=== PATIENT | male | born 1945 | race Caucasian/White ===

== ENCOUNTER 2018-10-28 14:11 | Emergency (ER) | payer SELFPAY ==
[2018-10-28 14:29] VITALS: BP 158/101
[2018-10-28] MEDS ORDERED: Lactated Ringers 500 ML IV ONE (14:30)
[2018-10-28] MEDS ORDERED: Lactated Ringers 1,000 ML IV SCH (14:45)
--- NOTE | 2018-10-28 16:50 | EDM.PDOC ---
ED HPI GENERAL MEDICAL PROBLEM - General Chief Complaint: Neurological Problem Stated Complaint: [facility] Time Seen by Provider: 10/28/18 14:11 - History of Present Illness INITIAL COMMENTS - FREE TEXT/NARRATIVE: 72-year-old male brought in by EMS. He was found down. Patient was last known normal on Wednesday. The patient was found down by family members today worried soiled himself and urinated. It is uncertain how long he's been down. The patient moves all 4 extremities equally he doesn't have facial weakness. He denies any pain when he first presents here no chest pain chest pressure he does not understand why he was down or how long he was down. The family found him down today. History is significant for frequent heavy alcohol usage over the last several years. It is unknown if this is contributing to the situation. - Related Data Allergies Allergy/AdvReac Type Severity Reaction Status Date / Time No Known Allergies Allergy Verified 10/30/14 12:20 Home Meds: Home Meds . [No Known Home Meds] 10/30/14 [History] Past Medical History - Past Health History Medical/Surgical History: Denies Medical/Surgical History Social & Family History - Family History Family Medical History: Noncontributory - Tobacco Use Smoking Status *Q: Never Smoker - Caffeine Use Caffeine Use: Reports: Coffee - Recreational Drug Use Recreational Drug Use: No ED ROS GENERAL - Review of Systems Review Of Systems: See Below Constitutional: Reports: Fever. Denies: Chills HEENT: Reports: No Symptoms Respiratory: Reports: No Symptoms Cardiovascular: Reports: No Symptoms GI/Abdominal: Reports: No Symptoms : Reports: Other (Incontinence related to be in down) Musculoskeletal: Reports: Back Pain Skin: Reports: No Symptoms Neurological: Reports: Confusion, Other (After watching him for a while not convinced he's not having some mild hallucinations) Psychiatric: Reports: Hallucinations, Other (He did become agitated while trying to position him. He tolerated getting the maude-area clean the belly came to reposition them become a little agitated because of back pain) Immunologic: Reports: No Symptoms ED EXAM, NEURO - Physical Exam Exam: See Below Exam Limited By: Other (Vital signs stable he had a low-grade fever of 100.5) General Appearance: No Apparent Distress, Other (Initially denies any pain or problems) Eye Exam: Bilateral Eye: Normal Inspection Nose: Normal Inspection, Normal Mucosa, No Blood Throat/Mouth: Normal Oropharynx, No Airway Compromise, Other Head Exam: Atraumatic, Normocephalic Neck: Normal Inspection, Supple, Non-Tender, Full Range of Motion Respiratory/Chest: No Respiratory Distress, Lungs Clear, Normal Breath Sounds Cardiovascular: Regular Rate, Rhythm, No Edema, No Murmur GI/Abdominal: Normal Bowel Sounds, Soft, Non-Tender Neurological: Other (He is slow to respond but answers questions for the most part appropriately with observation he was trying to take the light out of the pulse oximetry unit) Psychiatric: Flat Affect Skin Exam: Warm, Dry, Intact Course - Vital Signs Last Recorded V/S: Last Vital Signs Temp 38.1 C 10/28/18 14:16 Pulse 96 10/28/18 14:16 Resp 28 H 10/28/18 14:16 BP 158/101 H 10/28/18 14:16 Pulse Ox 92 L 10/28/18 14:16 - Orders/Labs/Meds Orders: Active Orders 24 hr Category Date Time Status EKG Documentation Completion [RC] STAT Care 10/28/18 14:27 Active Chest 1V Frontal [CR] Stat Exams 10/28/18 14:26 Taken Head wo Cont [CT] Stat Exams 10/28/18 14:25 Taken Lumbar Spine wo Cont [CT] Stat Exams 10/28/18 16:37 Ordered Thoracic Spine wo Cont [CT] Stat Exams 10/28/18 16:37 Ordered ABG [BLOOD GAS ARTERIAL] [BG] Stat Lab 10/28/18 16:34 Ordered CKMB [CHEM] Stat Lab 10/28/18 14:40 Received CULTURE BLOOD [BC] Stat Lab 10/28/18 14:48 Received CULTURE BLOOD [BC] Stat Lab 10/28/18 15:35 Received MYOGLOBIN, URINE Stat Lab 10/28/18 16:22 Received Lactated Ringers [Ringers, Lactated] 1,000 ml Med 10/28/18 14:45 Active IV ASDIRECTED Blood Culture x2 Reflex Set [OM.PC] Stat Oth 10/28/18 14:29 Ordered Medication Orders Lactated Ringer's (Ringers, Lactated) 1,000 mls @ 125 mls/hr IV ASDIRECTED PHONG Labs: Laboratory Tests 10/28/18 10/28/18 10/28/18 Range/Units 14:40 14:40 14:40 WBC 9.36 H (4.23-9.07) K/mm3 RBC 4.60 L (4.63-6.08) M/mm3 Hgb 17.0 (13.7-17.5) gm/L Hct 48.8 (40.1-51.0) % MCV 106.1 H (79.0-92.2) fl MCH 37.0 H (25.7-32.2) pg MCHC 34.8 (32.2-35.5) g/dl RDW Std Deviation 54.3 H (35.1-43.9) fL Plt Count 120 L (163-337) K/mm3 MPV 9.2 L (9.4-12.3) fl Neutrophils % (Manual) 85 H (40-60) % Band Neutrophils % 2 (0-10) % Lymphocytes % (Manual) 8 L (20-40) % Atypical Lymphs % 0 % Monocytes % (Manual) 5 (2-10) % Eosinophils % (Manual) 0 L (0.8-7.0) % Basophils % (Manual) 0 L (0.2-1.2) Platelet Estimate Decreased Plt Morphology Comment See note Anisocytosis 1+ slight Macrocytosis 1+ slight RBC Morph Comment Not Reportable PT 11.6 (9.5-12.1) SECONDS INR 1.07 APTT 29 (24-31) SECONDS Sodium 139 (136-145) mEq/L Potassium 3.6 (3.5-5.1) mEq/L Chloride 98 (98-107) mEq/L Carbon Dioxide 24 (21-32) mEq/L Anion Gap 20.6 H (5-15) BUN 13 (7-18) mg/dL Creatinine 1.0 (0.7-1.3) mg/dL Est Cr Clr Drug Dosing TNP Estimated GFR (MDRD) > 60 (>60) mL/min BUN/Creatinine Ratio 13.0 L (14-18) Glucose 131 H (83-115) mg/dL Lactic Acid (0.4-2.0) mmol/L Calcium 9.0 (8.5-10.1) mg/dL Total Bilirubin 1.8 H (0.2-1.0) mg/dL AST 384 H (15-37) U/L ALT 63 (16-63) U/L Alkaline Phosphatase 70 (46-116) U/L Creatine Kinase 82120 H (39-308) U/L Troponin I 1.924 H* (0.00-0.056) ng/mL Total Protein 7.0 (6.4-8.2) g/dl Albumin 3.1 L (3.4-5.0) g/dl Globulin 3.9 gm/dL Albumin/Globulin Ratio 0.8 L (1-2) Urine Color (Yellow) Urine Appearance (Clear) Urine pH (5.0-8.0) Ur Specific [place] (1.005-1.030) Urine Protein (Negative) Urine Glucose (UA) (Negative) Urine Ketones (Negative) Urine Occult Blood (Negative) Urine Nitrite (Negative) Urine Bilirubin (Negative) Urine Urobilinogen (0.2-1.0) Ur Leukocyte Esterase (Negative) Urine RBC (0-5) /hpf Urine WBC (0-5) /hpf Ur Epithelial Cells (0-5) /hpf Urine Bacteria (FEW) /hpf Urine Mucus (FEW) /hpf Urine Opiates Screen (TWJWGN=569) Ur Buprenorphine Scrn (CUTOFF=10) Ur Oxycodone Screen (BXV2UB=562) Urine Methadone Screen (SOJ0TF=782) Ur Propoxyphene Screen (LEMKYB=826) Ur Barbiturates Screen (NZLVUQ=003) Ur Tricyclics Screen (QNBQRS=209) Ur Phencyclidine Scrn (CUTOFF=25) Ur Amphetamine Screen (ZOXVBX=971) U Methamphetamines Scrn (ZSFTYZ=432) U Benzodiazepines Scrn (GDKSRS=665) U Cocaine Metab Screen (QZCGHR=103) U Marijuana (THC) Screen (CUTOFF=50) Ethyl Alcohol (0.00) gm% 10/28/18 10/28/18 10/28/18 Range/Units 14:40 14:40 16:22 WBC (4.23-9.07) K/mm3 RBC (4.63-6.08) M/mm3 Hgb (13.7-17.5) gm/L Hct (40.1-51.0) % MCV (79.0-92.2) fl MCH (25.7-32.2) pg MCHC (32.2-35.5) g/dl RDW Std Deviation (35.1-43.9) fL Plt Count (163-337) K/mm3 MPV (9.4-12.3) fl Neutrophils % (Manual) (40-60) % Band Neutrophils % (0-10) % Lymphocytes % (Manual) (20-40) % Atypical Lymphs % % Monocytes % (Manual) (2-10) % Eosinophils % (Manual) (0.8-7.0) % Basophils % (Manual) (0.2-1.2) Platelet Estimate Plt Morphology Comment Anisocytosis Macrocytosis RBC Morph Comment PT (9.5-12.1) SECONDS INR APTT (24-31) SECONDS Sodium (136-145) mEq/L Potassium (3.5-5.1) mEq/L Chloride (98-107) mEq/L Carbon Dioxide (21-32) mEq/L Anion Gap (5-15) BUN (7-18) mg/dL Creatinine (0.7-1.3) mg/dL Est Cr Clr Drug Dosing Estimated GFR (MDRD) (>60) mL/min BUN/Creatinine Ratio (14-18) Glucose (83-115) mg/dL Lactic Acid 1.4 (0.4-2.0) mmol/L Calcium (8.5-10.1) mg/dL Total Bilirubin (0.2-1.0) mg/dL AST (15-37) U/L ALT (16-63) U/L Alkaline Phosphatase (46-116) U/L Creatine Kinase (39-308) U/L Troponin I (0.00-0.056) ng/mL Total Protein (6.4-8.2) g/dl Albumin (3.4-5.0) g/dl Globulin gm/dL Albumin/Globulin Ratio (1-2) Urine Color Yellow (Yellow) Urine Appearance Slt cloudy H (Clear) Urine pH 5.5 (5.0-8.0) Ur Specific [place] > or = 1.030 (1.005-1.030) Urine Protein 2+ H (Negative) Urine Glucose (UA) Negative (Negative) Urine Ketones 4+ H (Negative) Urine Occult Blood 3+ H (Negative) Urine Nitrite Negative (Negative) Urine Bilirubin 3+ H (Negative) Urine Urobilinogen >=8.0 H (0.2-1.0) Ur Leukocyte Esterase Negative (Negative) Urine RBC 10-20 H (0-5) /hpf Urine WBC 0-5 (0-5) /hpf Ur Epithelial Cells 0-5 (0-5) /hpf Urine Bacteria Few (FEW) /hpf Urine Mucus Moderate H (FEW) /hpf Urine Opiates Screen (LXFKER=334) Ur Buprenorphine Scrn (CUTOFF=10) Ur Oxycodone Screen (DSM8BQ=994) Urine Methadone Screen (IOO5LY=471) Ur Propoxyphene Screen (OPFAOM=800) Ur Barbiturates Screen (EDRVOY=455) Ur Tricyclics Screen (KJVTAJ=962) Ur Phencyclidine Scrn (CUTOFF=25) Ur Amphetamine Screen (KIIORH=105) U Methamphetamines Scrn (YFZMNU=513) U Benzodiazepines Scrn (SHZELT=426) U Cocaine Metab Screen (HNDLLI=698) U Marijuana (THC) Screen (CUTOFF=50) Ethyl Alcohol 0.00 (0.00) gm% 10/28/18 Range/Units 16:22 WBC (4.23-9.07) K/mm3 RBC (4.63-6.08) M/mm3 Hgb (13.7-17.5) gm/L Hct (40.1-51.0) % MCV (79.0-92.2) fl MCH (25.7-32.2) pg MCHC (32.2-35.5) g/dl RDW Std Deviation (35.1-43.9) fL Plt Count (163-337) K/mm3 MPV (9.4-12.3) fl Neutrophils % (Manual) (40-60) % Band Neutrophils % (0-10) % Lymphocytes % (Manual) (20-40) % Atypical Lymphs % % Monocytes % (Manual) (2-10) % Eosinophils % (Manual) (0.8-7.0) % Basophils % (Manual) (0.2-1.2) Platelet Estimate Plt Morphology Comment Anisocytosis Macrocytosis RBC Morph Comment PT (9.5-12.1) SECONDS INR APTT (24-31) SECONDS Sodium (136-145) mEq/L Potassium (3.5-5.1) mEq/L Chloride (98-107) mEq/L Carbon Dioxide (21-32) mEq/L Anion Gap (5-15) BUN (7-18) mg/dL Creatinine (0.7-1.3) mg/dL Est Cr Clr Drug Dosing Estimated GFR (MDRD) (>60) mL/min BUN/Creatinine Ratio (14-18) Glucose (83-115) mg/dL Lactic Acid (0.4-2.0) mmol/L Calcium (8.5-10.1) mg/dL Total Bilirubin (0.2-1.0) mg/dL AST (15-37) U/L ALT (16-63) U/L Alkaline Phosphatase (46-116) U/L Creatine Kinase (39-308) U/L Troponin I (0.00-0.056) ng/mL Total Protein (6.4-8.2) g/dl Albumin (3.4-5.0) g/dl Globulin gm/dL Albumin/Globulin Ratio (1-2) Urine Color (Yellow) Urine Appearance (Clear) Urine pH (5.0-8.0) Ur Specific [place] (1.005-1.030) Urine Protein (Negative) Urine Glucose (UA) (Negative) Urine Ketones (Negative) Urine Occult Blood (Negative) Urine Nitrite (Negative) Urine Bilirubin (Negative) Urine Urobilinogen (0.2-1.0) Ur Leukocyte Esterase (Negative) Urine RBC (0-5) /hpf Urine WBC (0-5) /hpf Ur Epithelial Cells (0-5) /hpf Urine Bacteria (FEW) /hpf Urine Mucus (FEW) /hpf Urine Opiates Screen Negative (HIAPUZ=572) Ur Buprenorphine Scrn Negative (CUTOFF=10) Ur Oxycodone Screen Negative (XLY9KQ=197) Urine Methadone Screen Negative (HOE3EH=691) Ur Propoxyphene Screen Negative (TRYQDG=193) Ur Barbiturates Screen Negative (EDBYAY=608) Ur Tricyclics Screen Negative (INGNCE=594) Ur Phencyclidine Scrn Negative (CUTOFF=25) Ur Amphetamine Screen Negative (AGUAAS=777) U Methamphetamines Scrn Negative (BGGSOX=168) U Benzodiazepines Scrn Negative (WPLRCL=504) U Cocaine Metab Screen Negative (ISGIHB=104) U Marijuana (THC) Screen Negative (CUTOFF=50) Ethyl Alcohol (0.00) gm% Meds: Medications Generic Name Dose Route Start Last Admin Trade Name Freq PRN Reason Stop Dose Admin Lactated Ringer's 1,000 mls @ 125 mls/hr 10/28/18 14:45 Ringers, Lactated IV ASDIRECTED PHONG Discontinued Medications Generic Name Dose Route Start Last Admin Trade Name Jennifer PRABHAKAR Reason Stop Dose Admin Lactated Ringer's 500 mls @ 500 mls/hr 10/28/18 14:30 10/28/18 15:02 Ringers, Lactated IV 10/28/18 15:29 500 mls/hr .BOLUS ONE Administration - Re-Assessments/Exams Free Text/Narrative Re-Assessment/Exam: 10/28/18 16:46 Patient's case is somewhat confusing the patient was found down being down possibly up to 48 hours he was last known normal Wednesday found by family he's had a history of alcohol abuse recently. His troponin is elevated his CPK is still pending but they're doing deletion studies so this is elevated. Urinalysis is still pending urine toxicology is pending alcohol 0.00 that he probably hasn't drank in some time he potentially has some hallucinations going on. And his troponin is elevated CBC shows a macrocytic process and he has some transaminase elevation consistent with alcohol abuse. Patient's case was discussed with Dr. Ramos hospitalist at [facility] who is willing to accept the patient case was also discussed with Dr. Mack medina the patient will go to the hospitalist progressive care unit at [facility]. While awaiting for transfer this patient is having increased back pain tolerated getting his. Area cleared pretty well but position where he had to move his back causing discomfort I don't think he to tolerate getting plain films of his back so we' ll check a CT. Pending labs at this point include urinalysis urine toxicology back CT ABGs. Departure - Departure Time of Disposition: 16:54 Disposition: DC/Tfer to [facility] Clinical Impression: Elevated troponin, High anion gap metabolic acidosis - Discharge Information Referrals: PCP,None [Primary Care Provider] - Forms: ED Department Discharge - My Orders Last 24 Hours: My Active Orders 10/28/18 14:25 Head wo Cont [CT] Stat 10/28/18 14:26 Chest 1V Frontal [CR] Stat 10/28/18 14:27 EKG Documentation Completion [RC] STAT 10/28/18 14:29 Blood Culture x2 Reflex Set [OM.PC] Stat 10/28/18 14:40 CKMB [CHEM] Stat 10/28/18 14:45 Lactated Ringers [Ringers, Lactated] 1,000 ml IV ASDIRECTED 10/28/18 14:48 CULTURE BLOOD [BC] Stat 10/28/18 15:35 CULTURE BLOOD [BC] Stat 10/28/18 16:22 MYOGLOBIN, URINE Stat 10/28/18 16:34 ABG [BLOOD GAS ARTERIAL] [BG] Stat 10/28/18 16:37 Lumbar Spine wo Cont [CT] Stat Thoracic Spine wo Cont [CT] Stat - Assessment/Plan Last 24 Hours: My Active Orders 10/28/18 14:25 Head wo Cont [CT] Stat 10/28/18 14:26 Chest 1V Frontal [CR] Stat 10/28/18 14:27 EKG Documentation Completion [RC] STAT 10/28/18 14:29 Blood Culture x2 Reflex Set [OM.PC] Stat 10/28/18 14:40 CKMB [CHEM] Stat 10/28/18 14:45 Lactated Ringers [Ringers, Lactated] 1,000 ml IV ASDIRECTED 10/28/18 14:48 CULTURE BLOOD [BC] Stat 10/28/18 15:35 CULTURE BLOOD [BC] Stat 10/28/18 16:22 MYOGLOBIN, URINE Stat 10/28/18 16:34 ABG [BLOOD GAS ARTERIAL] [BG] Stat 10/28/18 16:37 Lumbar Spine wo Cont [CT] Stat Thoracic Spine wo Cont [CT] Stat
[2018-10-28] MEDS ORDERED: LORazepam 2 MG/ML SDV IVPUSH ONE ×2 (17:09→17:40)
[2018-10-28] MEDS ORDERED: Thiamine 100 MG in Sodium Chloride 0.9% 100 ML IV ONE (17:41)
[2018-10-29] MEDS ORDERED: Folic Acid 50 MG/10 ML MDV SUBCUT ONE (17:46)
--- NOTE | 2018-10-31 07:03 | CT ---
CT thoracic spine Technique: Multiple axial sections through the thoracic spine were obtained. Reconstructed coronal and sagittal images were reviewed. Comparison: Previous chest CT study of 10/30/14 (reconstructed sagittal views). Findings: Mild compression deformities are seen within T7, T8 and T9 which are old. Scattered degenerative change is seen. No acute fracture is identified. No abnormal subluxation is seen. No bony central or bony neural foraminal stenosis is seen. Small superficial soft tissue abnormality seen within the posterior left back most likely representing benign skin lesion which is an incidental finding. Small hiatal hernia is seen. Esophageal wall thickening is noted. Fluid is seen within the esophagus. Findings most likely represent reflux esophagitis. Impression: 1. Degenerative change and old compression deformities within the spine as described above. 2. Findings of probable reflux esophagitis. 3. No acute abnormality appreciated on CT study of the thoracic spine. Other incidental findings as noted above. Diagnostic code #3 I agree with preliminary report from [facility], finalized on 10/28/18, 6:19 PM Central Time
--- NOTE | 2018-10-31 08:14 | CT ---
CT lumbar spine Technique: Multiple axial sections were obtained through the lumbar spine. Reconstructed sagittal and coronal images were reviewed. Comparison: No prior lumbar spine imaging. Findings: Posterior disc space narrowing is noted at T12-L1. Vacuum disc phenomena is noted at L1-L2. Mild spondylolisthesis noted at L4-L5 due to degenerative apophyseal change. Lesser degenerative change is seen throughout other levels of the lumbar spine. Slight anterior wedging noted at T12 with no acute fracture line being seen and this is most likely old. No fracture is appreciated within the lumbar spine. Mild diffuse circumferential disc bulging seen throughout the lumbar spine with multiple levels of central canal stenosis. Impression: 1. Degenerative change as noted above. Nothing acute is seen on CT study of the lumbar spine. Diagnostic code #2 I agree with preliminary report from [facility], finalized on 10/28/18, 6:16 PM Central Time
--- NOTE | 2018-10-31 08:14 | CT ---
Head CT Technique: Multiple axial sections through the brain were obtained. Intravenous contrast was not utilized. Comparison: Prior head CT study of 10/30/14. Findings: Ventricles along with basal cisterns and sulci over the convexities are moderately prominent. Diminished density noted within the periventricular white matter as well as within portions of the basal ganglia. Low density is also noted within the white matter within the cerebellum. These findings are compatible with small vessel ischemic demyelination change. No other abnormal parenchymal densities are seen. No evidence of intracranial hemorrhage. No midline shift or mass effect is seen. Bone window settings were reviewed which show no acute calvarial abnormality. Air-fluid level noted within the right maxillary sinus. Moderate areas of mucosal thickening are seen within the ethmoid sinuses. Air-fluid level noted within the right frontal sinus. Impression: 1. Sinus disease. Air-fluid levels are noted and difficult to exclude acute sinusitis. Findings may also represent retained secretions if patient has no sinus symptoms. 2. Senescent change as described above. 3. No acute intracranial abnormality is seen. Mild disagree with preliminary report given by [facility] (please see above), this preliminary report was dictated on 10/28/18, 3:40 PM Central Time, code #2
--- NOTE | 2018-11-01 10:42 | CR ---
Chest: Portable view of the chest was obtained. Comparison: No prior chest x-ray, previous chest CT of 10/30/14. Heart size and mediastinum are normal. Lungs are clear. Bony structures are osteopenic. Mild scoliosis is noted within the spine with scattered degenerative change. Carotid artery calcification is seen. Impression: 1. Incidental findings. Nothing acute is seen. Diagnostic code #2
== END 2018-10-28 18:27 ==
LOC: JD.ED 14:11
DX: E87.2 Acidosis (principal); R79.89 Other specified abnormal findings of blood chemistry
CPT/HCPCS: 36415; 36600; 70450; 71045; 72128; 72131; 80053; 80306; 81001; 82550; 82553; 82803; 82962; 83605; 83874; 84484; 85007; 85027; 85610; 85730; 87040; 93005; 96361; 96365; 96375; 99285; G0480; J2060; J3411; J7030; J7120; 93010